=== PATIENT | male | born 1955 | race Caucasian/White ===

== ENCOUNTER 2016-09-13 14:30 | Emergency (ER) ==
[2016-09-13 14:50] VITALS: BP 149/85; TEMP 98.3; BMI 35.9
[2016-09-13] MEDS ORDERED: TORADOL IM STA (15:13)
[2016-09-13] MEDS ORDERED: NORFLEX IM STA (15:14)
--- NOTE | 2016-09-13 15:27 | ED.PDOC ---
General ED Provider: Dr. SONA SILVA JR Chief Complaint: Back Pain Stated Complaint: chronic back pain 20 yrs. progressively worse past 20 days. can't take it anymore. Pain meds not helping. (Percocet 10 mg TID). Sees Dr Campoverde at pain management. [End]20 DAYS 98.3 72 20 95% 149/85 9/10patint states"toradol is a great pain medication" Time Seen by Physician: 15:27 Mode of Arrival: Walk-In Information Source: Patient Exam Limitations: No limitations Primary Care Provider: KRISTI CHACKO Nursing and Triage Documentation Reviewed and Agree: No Review of Systems - Review Of Systems Constitutional: Reports: No symptoms Eyes: Reports: No symptoms Ears, Nose, Mouth, Throat: Reports: No symptoms Respiratory: Reports: No symptoms Cardiac: Reports: No symptoms GI: Reports: No symptoms : Reports: No symptoms Musculoskeletal: Reports: Back pain, Muscle pain, Other Neurological: Reports: Numbness (burning in lower legs), Weakness Endocrine: Reports: No symptoms Hematologic/Lymphatic: Reports: No symptoms All Other Systems: Other Past Medical History - Past Medical History Endocrine: Reports: Dyslipidemia Cardiovascular: Reports: CAD, [place], Hypertension Respiratory: Reports: COPD Hematological: Reports: None Gastrointestinal: Reports: None Genitourinary: Reports: None Neuro/Psych: Reports: None Musculoskeletal: Reports: Back Pain Cancer: Reports: None Other Pertinent Past Medical History: Chronic back pain - Surgical History General Surgical History: Reports: CABG (x 3), Back Surgery (multiple back surgeries. PELVIS FUSION ), Hernia Repair, Other (Pelvis fusion surgeries. ) - Family History Family History: Reports: Unknown - Social History Smoking Status: Current every day smoker, Light tobacco smoker Hx Substance Use: No Alcohol Screening: None Physical Exam - Physical Exam Appearance: Well-appearing, Obese Pain Distress: Moderate Eyes: NATHANIEL, EOMI, Conjunctiva clear ENT: Ears normal, Nose normal, Oropharynx normal Neck: Supple Respiratory: Airway patent, Breath sounds clear, Breath sounds equal, Respirations nonlabored Cardiovascular: RRR, Pulses normal, No rub, No murmur GI/: Soft, Nontender, No masses, Bowel sounds normal, No Organomegaly Musculoskeletal: Limited ROM (back pain) Skin: Warm, Dry, Normal color Neurological: Sensation intact, Motor intact, Reflexes intact, Cranial nerves intact, Alert, Oriented Psychiatric: Affect appropriate, Mood appropriate Critical Care Note - Critical Care Note Total Time (mins): 0 Course - Course Hematology/Chemistry: 09/13/16 15:15 Orders, Labs, Meds: Lab Review 09/13/16 09/13/16 15:15 16:45 WBC 9.99 RBC 4.89 Hgb 14.8 Hct 43.2 MCV 88.3 MCH 30.3 MCHC 34.3 RDW Coeff of [place] 14.6 Plt Count 211 Immature Gran % (Auto) 0.3 Neut % (Auto) 57.7 Lymph % (Auto) 31.7 [place] % (Auto) 7.1 Eos % (Auto) 2.2 Baso % (Auto) 1.0 Immature Gran # (Auto) 0.0 Neut # 5.8 Lymph # 3.2 Porter # 0.7 Eos # 0.2 Baso # 0.1 Urine Color Dark Urine Clarity Clear Urine pH 5.5 Ur Specific [place] 1.020 Urine Protein Negative Urine Glucose (UA) Negative Urine Ketones Negative Urine Blood Negative Urine Nitrite Negative Urine Bilirubin Negative Urine Urobilinogen 0.2 Ur Leukocyte Esterase Negative Orders Category Date Time Status CBC W/ AUTO DIFF Stat LAB 09/13/16 15:15 Completed URINALYSIS C & S IF INDICATED Stat LAB 09/13/16 16:45 Completed Ketorolac Tromethamine [Toradol] MEDS 09/13/16 15:13 Discontinued 60 mg IM ONCE STA Orphenadrine Citrate [Norflex] MEDS 09/13/16 15:14 Discontinued 60 mg IM ONCE STA CT LUMBAR SPINE W/O CONTRAST Stat RADS 09/13/16 15:13 Completed Medications Discontinued Medications Generic Name Dose Route Start Last Admin Trade Name Freq PRN Reason Stop Dose Admin Ketorolac Tromethamine 60 mg 09/13/16 15:13 09/13/16 16:21 Toradol IM 09/13/16 15:14 60 mg ONCE STA Administration Orphenadrine Citrate 60 mg 09/13/16 15:14 09/13/16 16:21 Norflex IM 09/13/16 15:15 60 mg ONCE STA Administration Vital Signs: Temp Pulse Resp BP Pulse Ox 09/13/16 14:31 98.3 F 72 20 149/85 H 95 Departure - Departure Time of Disposition: 16:47 Disposition: HOME SELF-CARE Discharge Problem: Back pain of lumbar region with sciatica Instructions: Chronic Back Pain (ED), Lower Back Exercises (ED) Condition: Good Pt referred to PMD for follow-up: Yes Additional Instructions: Indocin for pain take with food discuss with your physician return if weakness or one sided symptoms continue to lose weight dicuss exercises with back surgeon Prescriptions: Indomethacin [Indocin] 25 mg PO TIDWM PRN #30 capsule PRN Reason: PAIN Allergies/Adverse Reactions: Allergies Latex, Natural Rubber Adverse Reaction (Verified 09/13/16 14:42) Home Medications: Ambulatory Orders Ibuprofen 800 mg PO TID #30 tablet 01/28/15 Indomethacin [Indocin] 25 mg PO TIDWM PRN #30 capsule 09/13/16 Oxycodone HCl/Acetaminophen [Percocet 10-325 mg Tablet] 1 each PO TID 09/13/16 Tizanidine HCl [Zanaflex] 4 mg PO TID 09/13/16
[2016-09-13 15:28] LABS: BASOPHILS # (AUTO) 0.1 K/uL (0-0.2); EOSINOPHILS # (AUTO) 0.2 K/ul (0.0-0.7); EOSINOPHILS % (AUTO) 2.2 % (0.0-7.0); HEMATOCRIT 43.2 % (42.0-52.0); HEMOGLOBIN 14.8 g/dl (14.0-18.0); IMMATURE GRANULOCYTE % (AUTO) 0.3 % (0.0-5.0); LYMPHOCYTES # (AUTO) 3.2 K/uL (0.60-3.4); LYMPHOCYTES % (AUTO) 31.7 (10.0-50.0); MEAN CORPUSCULAR HEMOGLOBIN 30.3 pg (27.0-31.0); MEAN CORPUSCULAR HGB CONC 34.3 (31.8-35.4); MEAN CORPUSCULAR VOLUME 88.3 fl (80.0-94.0); MONOCYTES # (AUTO) 0.7 K/uL (0.4-2.0); MONOCYTES % (AUTO) 7.1 (0-10); NEUTROPHILS # (AUTO) 5.8 K/ul (2.0-6.9); NEUTROPHILS % (AUTO) 57.7; PLATELET COUNT 211 10^3/uL (140-440); RED BLOOD COUNT 4.89 10^6/ul (4.70-6.10); WHITE BLOOD COUNT 9.99 K/ul (4.2-10.2)
--- NOTE | 2016-09-13 16:25 | CT ---
EXAM: CT of the lumbar spine without contrast History: Worsening back pain. Comparison: None available. Technique: Multiplanar CT images through the lumbar spine were obtained without the administration of IV contrast Findings: Bronchial wall thickening seen within the lower lobes. Atherosclerotic vascular calcific ations. Postsurgical changes with fusion hardware involving the bilateral sacroiliac joints. No acute fracture or subluxation. Grossly intact posterior fusion hardware from L4-S1. T12-L1: No significant disc bulge, central canal stenosis or neural foraminal narrowing. L1-L2: No significant disc bulge, central canal stenosis or neural foraminal narrowing. L2-L3: Modest disc bulge effacing the anterior thecal sac with moderate central canal stenosis. Mi ld to moderate bilateral bony neural foraminal narrowing secondary to ligamentous and facet hypertro phy. L3-L4: Limited evaluation due to streak artifact from hardware. There is probably moderate central canal stenosis. Severe left and moderate to severe right bony neural foraminal narrowing secondary to ligamentous and facet hypertrophy. L4-L5: No significant bony central canal stenosis. Mild to moderate bilateral bony neural foramina l narrowing secondary to ligamentous and facet hypertrophy. L5-S1: No significant bony central canal stenosis. Moderate left and mild right bony neural foramin al narrowing secondary to ligamentous and facet hypertrophy. Posterior laminectomies seen at the fusion levels. Impression: 1. No acute osseous abnormality of the lumbar spine. 2. Grossly intact hardware. 3. Level by level analysis as detailed above.
[2016-09-13 16:51] LABS: BILIRUBIN,URINE Negative (NEGATIVE); KETONES,URINE Negative (NEGATIVE); LEUKOCYTE ESTERASE ,URINE Negative (NEGATIVE); NITRITE,URINE Negative (NEGATIVE); PH,URINE 5.5 (5-9); PROTEIN,URINE Negative (NEGATIVE); URINE, BLOOD Negative (NEGATIVE)
[2016-09-13 17:12] LABS: ADD URINE MICROSCOPIC NO
== END 2016-09-13 17:14 | disposition home or self-care (01) ==
LOC: ED 14:30
DX: M54.40 Lumbago with sciatica, unspecified side (principal); G89.29 Other chronic pain; F17.210 Nicotine dependence, cigarettes, uncomplicated
CPT/HCPCS: 36415; 81001; 85025; 96372; 99283